=== PATIENT | female | born 1960 | race Two or more races ===

== ENCOUNTER 2017-01-24 05:01 | Inpatient (IN) | payer OTHER ==
[~2017-01-24] VITALS: Ht 154.9 cm; Wt 78.1 kg
[2017-01-24 05:15] VITALS: BP 128/78
[2017-01-24 05:30] VITALS: BP 128/78
--- NOTE | 2017-01-24 05:30 | NUR ---
MS RN NOTE RECEIVED PATIENT AWAKE, ALERT AND ORIENTED VIA [facility] FOR LEFT KNEE SURGERY. ACCOMPANIED BY FRIEND VERO. PATIENT IS IN STABLE CONDITION, WITH NO DISTRESS NOTED. ABLE TO AMBULATE AND MAKE NEEDS KNOWN. ORIENTED PATIENT TO ROOM AND TO UNIT. ALL BELONGINGS CHECKED AND ACCOUNTED FOR. IV STARTED TO LAC. PATIENT TOLERATED WELL. PATIENT STATES THAT SHE HAS BEEN NPO SINCE 1400 ON 01/23. ALL CONSENTS AND PRE-OP CHECKLISTSIGNED AND PLACED IN CHART. SKIN CHECKED. NO BREAKDOWN OR BRUISING NOTED. BED LOCKED AND IN LOWEST POSITION. SIDE RAILS UP, CALL LIGHT WITHIN REACH. WAITING FOR OR TO TRAINING PROGRAM ASSISTANT PATIENT. WILL CONTINUE TO MONITOR.
[2017-01-24] MEDS ORDERED: BACITRACIN 50000 UNITS/VIAL ONE (06:06)
[2017-01-24] MEDS ORDERED: KETOROLAC TROMETHAMINE INJ 30 MG/ML VIAL ONE (06:06)
[2017-01-24] MEDS ORDERED: BUPIVACAINE 0.5 % PF 150 MG/30 ML VIAL ONE (06:06)
[2017-01-24] MEDS ORDERED: ANESTHESIA TRAY IN PYXIS 1 EA TRAY MC ONE (06:06)
--- NOTE | 2017-01-24 06:20 | NUR ---
MS RN NOTE PATIENT PICKED UP BY OR NURSE IN STABLE CONDITION FOR LEFT KNEE SURGERY.
[2017-01-24] MEDS ORDERED: MIDAZOLAM HCL 2 MG/2ML VIAL ONE (06:30)
[2017-01-24] MEDS ORDERED: FENTANYL PF 100MCG/2ML AMPUL ONE (06:31)
[2017-01-24 06:48] LABS: BASOPHILS % (AUTO) 0.3 % (0.0-2.0); EOSINOPHILS # (AUTO) 0.1 /CMM (0.0-0.7); EOSINOPHILS % (AUTO) 1.4 % (0.0-6.0); HEMATOCRIT 44 % (33-45); HEMOGLOBIN 14.8 g/dL (11.5-14.8); LYMPHOCYTES # (AUTO) 2.6 /CMM (0.8-4.8); LYMPHOCYTES % (AUTO) 38.3 % (20.0-44.0); MEAN CORPUSCULAR HEMOGLOBIN 30 PG (26.0-33.0); MEAN CORPUSCULAR HGB CONC 34 g/dl (31.0-36.0); MEAN CORPUSCULAR VOLUME 88 fL (82-100); MONOCYTES # (AUTO) 0.4 /CMM (0.1-1.30); MONOCYTES % (AUTO) 6.1 % (2.0-12.0); NEUTROPHILS # (AUTO) 3.7 /CMM (1.8-8.9); NEUTROPHILS % (AUTO) 53.9 % (43.0-81.0); PLATELET COUNT (AUTO) 176 /CMM (150-450); RED BLOOD CELL COUNT(AUTO) 4.95 MIL/uL (4.0-5.2); WHITE BLOOD COUNT (AUTO) 6.9 K/uL (4.3-11.0)
[2017-01-24 07:06] LABS: CALCIUM, SERUM 9.6 mg/dL (8.5-10.1); POTASSIUM 3.9 mmol/L (3.5-5.1)
[2017-01-24] MEDS ORDERED: TRANEXAMIC ACID 3,000 MG in SODIUM CHLORIDE IRRIG SOLUTION 70 ML IR ONE (07:30)
--- NOTE | 2017-01-24 07:30 | NUR ---
MS RN PATIENT OUT OF ROOM, IN OR FOR SURGERY.
[2017-01-24 09:15] VITALS: BP 115/72
--- NOTE | 2017-01-24 09:15 | NUR ---
ms rn received 56 year old patient awake,alert,oriented x 3, not in any form of distress, respirations even and unlabored,no sob noted, s/p left knee surgery w/ dry dressing intact, no s/s of bleeding noted, ice pack applied, vergara to gravity, w/ yellowish urine output, will monitor patient's condition.
[2017-01-24 09:30] VITALS: BP 122/71
[2017-01-24] MEDS ORDERED: TYLENOL 650 MG TABLET PO PRN (10:30)
[2017-01-24] MEDS ORDERED: ZOFRAN 4mg/2ML IV PRN (10:30)
[2017-01-24] MEDS ORDERED: DULCOLAX 10 MG/SUPP.RECT RC PRN (10:30)
[2017-01-24] MEDS ORDERED: CLONIDINE HCL 0.1 MG TABLET PO PRN (10:30)
[2017-01-24] MEDS ORDERED: PROMETHAZINE HCL 25 MG/ML AMPUL IM PRN (10:30)
[2017-01-24] MEDS ORDERED: HYDROCODONE/APAP 10/325MG 1 EA TABLET PO PRN ×2 (10:30→19:30)
[2017-01-24] MEDS ORDERED: NALOXONE HCL 0.4 MG/ML AMPUL IV PRN (10:30)
[2017-01-24] MEDS ORDERED: SENOKOT 8.6 MG TABLET PO PRN (10:30)
[2017-01-24] MEDS ORDERED: HYDROMORPHONE 1 MG/1 ML DISP.SYRIN SQ PRN ×3 (10:30→19:30)
[2017-01-24] MEDS ORDERED: ONDANSETRON HCL/PF 4 MG/2 ML VIAL IVP PRN (10:30)
[2017-01-24] MEDS ORDERED: BISACODYL SUPP (10 MG) 10 MG/SUPP.RECT SUPP.RECT RC PRN (10:30)
[2017-01-24] MEDS ORDERED: IV D5/0.45 NACL 1,000 ML IV PRN (10:30)
[2017-01-24] MEDS ORDERED: MAG HYDROX/AL HYDROX/SIMETH 30 ML UDC PO PRN (10:30)
[2017-01-24] MEDS ORDERED: diphenhydrAMINE HCL 25 MG CAPSULE PO PRN (10:30)
[2017-01-24] MEDS ORDERED: MAGNESIUM HYDROXIDE 30 ML UDC PO PRN (10:30)
[2017-01-24] MEDS ORDERED: HYDROCODONE/APAP 5/325MG 1 EACH TABLET PO PRN ×2 (10:30→17:00)
[2017-01-24] MEDS ORDERED: oxyCODONE IR immediate release 5 MG CAPSULE PO PRN (10:30)
[2017-01-24] MEDS ORDERED: MENTHOL/CETYLPYRD (CEPACOL) 1 LOZ LOZENGE MM PRN (10:30)
[2017-01-24] MEDS ORDERED: COLACE 250 MG CAPSULE PO PRN (10:30)
--- NOTE | 2017-01-24 11:00 | NUR ---
ms rn started on iv, dilaudid 1 mg iv given for pain,will monitor effectiveness, is started for hydration, v/s monitored.
[2017-01-24] MEDS: ONDANSETRON HCL/PF 4 MG/2 ML VIAL IVP PRN (12:43)
--- NOTE | 2017-01-24 14:30 | NUR ---
ms rn was seen by feliciano joaquin, awaiting for orders.
[2017-01-24 16:00] VITALS: BP 117/76
--- NOTE | 2017-01-24 16:00 | NUR ---
ms rn was seen by pt, cpm on at 30 degree angle.
[2017-01-24] MEDS: ANCEF 1 G in IV D5W 50 ML IV SCH (16:12)
[2017-01-24] MEDS: DOCUSATE SODIUM 100 MG CAPSULE PO SCH (16:14)
--- NOTE | 2017-01-24 17:00 | NUR ---
ms rn was seen by dr. vaughn son/ orders made and carried out.
--- NOTE | 2017-01-24 18:20 | NUR ---
ms nr on bed, no distress, will endorsed to corporate wellness coordinator for continuity of care. cpm removed during dinner.
--- NOTE | 2017-01-24 19:50 | NUR ---
MS RN NOTE: PATIENT RESTING IN BED, NO ACUTE DISTRESS NOTED. BREATHING EVEN AND UNLABORED, NO SOB NOTED. IV TO LFA IN PLACE, INFUSING D5 1/2NS AT 125 ML/HR. PRICE CATHETER IN PLACE, EMPTY AT THIS TIME. DRESSING TO LEFT LEG CLEAN, DRY AND IN PLACE, NO BLEEDING NOTED. BED LOCKED AND IN LOWEST POSITION, CALL LIGHT IN REACH. WILL CONTINUE TO MONITOR.
[2017-01-24 20:00] VITALS: BP 114/77
[2017-01-24] MEDS: HYDROCODONE/APAP 5/325MG 1 EACH TABLET PO PRN (20:08)
--- NOTE | 2017-01-24 20:15 | NUR ---
MS RN NOTE: PATIENT COMPLAINS OF PAIN TO LEFT LEG /10, NORCO 5/325MG ORAL GIVEN PER MD ORDER. WILL CONTINUE TO MONITOR.
[2017-01-24] MEDS: PANTOPRAZOLE 40 MG TABLET.DR PO SCH (21:51)
[2017-01-24] MEDS ORDERED: AMBIEN 5 MG TABLET PO PRN (22:00)
[2017-01-25] MEDS: ANCEF 1 G in IV D5W 50 ML IV SCH (01:08)
[2017-01-25] MEDS: HYDROCODONE/APAP 5/325MG 1 EACH TABLET PO PRN ×5 (03:34→22:21)
--- NOTE | 2017-01-25 03:35 | NUR ---
MS RN NOTE: PATIENT COMPLAINS OF PAIN TO LEFT LEG /10, NORCO 5/325MG ORAL GIVEN PER MD ORDER. WILL CONTINUE TO MONITOR.
--- NOTE | 2017-01-25 04:19 | NUR ---
MS RN NOTE: PATIENT ABLE TO TOLERATE CURRENT DIET WITHOUT COMPLICATION, PER DR. GRUBER ORDER, TO DISCONTINUE IV FLUIDS WITH PATIENT ABLE TO TOLERATE ORAL INTAKE. IV FLUIDS DISCONTINUED. WILL CONTINUE TO MONITOR.
--- NOTE | 2017-01-25 06:20 | NUR ---
MS RN NOTE: PATIENT RESTING IN BED, NO ACUTE DISTRESS NOTED. BREATHING EVEN AND UNLABORED, NO SOB NOTED. IV TO LFA IN PLACE. PRICE CATHETER IN PLACE. DRESSING TO LEFT LEG CLEAN, DRY AND IN PLACE, NO BLEEDING NOTED. BED LOCKED AND IN LOWEST POSITION, CALL LIGHT IN REACH. WILL ENDORSE TO DAY NURSE TO CONTINUE WITH PLAN OF CARE.
--- NOTE | 2017-01-25 07:30 | NUR ---
MS RN AM NOTES: PATIENT IN BED, AAO X 4, S/P L KNEE ARTHROTOMY 01/24/17 DR GRUBER, CDI DRESSING, MD TO CHANGE DRESSING, ON RA, NO ACUTE DISTRESS NOTED. BREATHING EVEN AND UNLABORED, NO SOB NOTED. LFA G20 IV ACCESS FLUSHES WELL, SITE CLEAR, REGULAR DIET, CPM MACHINE IN PLACE, FOR PHYSICAL THERAPY FWB, OOB, BED LOCKED AND IN LOWEST POSITION, CALL LIGHT IN REACH. WILL CONTINUE TO MONITOR.
--- NOTE | 2017-01-25 07:30 | NUR ---
MS SINGLETARY AM NOTES: PATIENT IN BED, AAO X 4, S/P RT SHOULDER ARTHROTOMY 01/24/17 DR GRUBER, CDI DRESSING, ON RA, NO ACUTE DISTRESS NOTED. BREATHING EVEN AND UNLABORED, NO SOB NOTED. D5 1/2NS AT 125 ML/HR TO LFA INFUSING WELL. SITE CLEAR, REGULAR DIET, AMBULATORY, BRP. BED LOCKED AND IN LOWEST POSITION, CALL LIGHT IN REACH. WILL CONTINUE TO MONITOR. Addendum: 01/25/17 at 1113 by ENE REYEZ RN CORRECTION: DISREGARD THIS NOTES INTENDED FOR ANOTHER PATIENT.
[2017-01-25 08:00] VITALS: BP 121/63
[2017-01-25] MEDS: ASPIRIN 325 MG TABLET PO SCH ×2 (08:37→16:57)
[2017-01-25] MEDS: DOCUSATE SODIUM 100 MG CAPSULE PO SCH ×2 (09:20→16:57)
--- NOTE | 2017-01-25 09:30 | NUR ---
MS RN NOTES ADMINISTERED DUE MEDS.
[2017-01-25 11:58] LABS: HEMOGLOBIN 13.4 g/dL (11.5-14.8)
[2017-01-25 16:00] VITALS: BP_SYST 119; BP_DIAS 63; BP_DIAS 65
[2017-01-25 18:00] VITALS: BP 119/63
--- NOTE | 2017-01-25 18:27 | NUR ---
MS RN CLOSING NOTES: PATIENT IN BED, RESTING COMFORTABLY, AAO X 4, S/P L KNEE ARTHROTOMY 01/24/17 DR GRUBER, CDI DRESSING, MD TO CHANGE DRESSING SRINIVAS, ON RA, NO ACUTE DISTRESS NOTED. BREATHING EVEN AND UNLABORED, NO SOB NOTED. DENIES PAIN AT THIS TIME, LFA G20 IV ACCESS FLUSHES WELL, SITE CLEAR, REGULAR DIET, CPM MACHINE IN PLACE,PRICE CATHETER IN PLACE WITH 1200 ML OUTPUT, REQUESTED TO KEEP ON FOR TONIGHT SCARED TO GET UP DUE TO DIZZY SPELL EARLIER WHILE SITTING IN CHAIR, BED LOCKED AND IN LOWEST POSITION, CALL LIGHT IN REACH. ALL NEEDS MET, NO OTHER SIGNIFICANT CHANGE IN CONDITION. WILL ENDORSE TO NEXT SHIFT FOR SHIRA.
--- NOTE | 2017-01-25 19:40 | NUR ---
MS RN NOTE: PATIENT RESTING IN BED, NO ACUTE DISTRESS NOTED. BREATHING EVEN AND UNLABORED, NO SOB NOTED. IV TO LFA IN PLACE. PRICE CATHETER IN PLACE, EMPTY AT THIS TIME. DRESSING TO LEFT LEG CLEAN, DRY AND IN PLACE, NO BLEEDING NOTED. BED LOCKED AND IN LOWEST POSITION, CALL LIGHT IN REACH. WILL CONTINUE TO MONITOR.
[2017-01-25 20:00] VITALS: BP 111/60
[2017-01-25] MEDS: PANTOPRAZOLE 40 MG TABLET.DR PO SCH (22:17)
--- NOTE | 2017-01-25 22:30 | NUR ---
MS RN NOTE: PATIENT COMPLAINS OF PAIN TO LEFT LEG /10, NORCO 5/325MG ORAL GIVEN PER MD ORDER. WILL CONTINUE TO MONITOR.
[2017-01-26] MEDS: HYDROCODONE/APAP 5/325MG 1 EACH TABLET PO PRN ×3 (02:57→20:16)
--- NOTE | 2017-01-26 03:00 | NUR ---
MS RN NOTE: PATIENT COMPLAINS OF PAIN TO LEFT LEG /10, NORCO 5/325MG ORAL GIVEN PER MD ORDER. WILL CONTINUE TO MONITOR.
--- NOTE | 2017-01-26 06:10 | NUR ---
MS RN NOTE: PATIENT RESTING IN BED, NO ACUTE DISTRESS NOTED. BREATHING EVEN AND UNLABORED, NO SOB NOTED. IV TO LFA IN PLACE. PRICE CATHETER IN PLACE. DRESSING TO LEFT LEG CLEAN, DRY AND IN PLACE, NO BLEEDING NOTED. BED LOCKED AND IN LOWEST POSITION, CALL LIGHT IN REACH. WILL CONTINUE TO MONITOR.
--- NOTE | 2017-01-26 07:30 | NUR ---
MS RN OPENING NOTES RECEIVED PT IN BED A/O X4,VERBALLY RESPONSIVE,ON ROOM AIR RESPIRATIONS EVEN UNLABORED,NO SOB NOTED.CALL LIGHT WITHIN REACH. F/C IN PLACE PATENT DRAINIG YELLOW COLOR URINE.IV SITE LFA INTACT, NO S/SX OF INFILTRATION NOTED. ON REGULAR DIET. BED LOCKED AND IN LOWEST POSITION.SAFETY MEASURES IN PLACE. WILL CONTINUE TO MONITOR ACCORDINGLY.
[2017-01-26 08:00] VITALS: BP 123/72
[2017-01-26] MEDS: DOCUSATE SODIUM 100 MG CAPSULE PO SCH ×2 (08:28→16:34)
[2017-01-26] MEDS: ASPIRIN 325 MG TABLET PO SCH ×2 (08:28→16:34)
--- NOTE | 2017-01-26 09:30 | NUR ---
MS RN NOTES DUE MEDS GIVEN. PRICE CATHETER DISCONTINUED EARLIER WITH 250 ML OUTPUT.
[2017-01-26] MEDS: ONDANSETRON HCL/PF 4 MG/2 ML VIAL IVP PRN (15:24)
[2017-01-26 16:00] VITALS: BP 133/85
[2017-01-26] MEDS ORDERED: HYDROCODONE/APAP 5/325MG 1 EACH TABLET PO PRN (17:00)
--- NOTE | 2017-01-26 18:49 | NUR ---
MS RN CLOSING NOTES: PATIENT IN BED, RESTING COMFORTABLY, AAO X 4, S/P L KNEE ARTHROTOMY 01/24/17 DR GRUBER, CDI DRESSING, MD TO CHANGE DRESSING SRINIVAS, ON RA, NO ACUTE DISTRESS NOTED. BREATHING EVEN AND UNLABORED, NO SOB NOTED. DENIES PAIN AT THIS TIME, LFA G20 IV ACCESS FLUSHES WELL, SITE CLEAR, REGULAR DIET, CPM MACHINE IN PLACE,BED LOCKED AND IN LOWEST POSITION, CALL LIGHT IN REACH. ALL NEEDS MET, NO OTHER SIGNIFICANT CHANGE IN CONDITION. WILL ENDORSE TO NEXT SHIFT FOR SHIRA.
--- NOTE | 2017-01-26 19:15 | NUR ---
RN NOTES PT RESTING IN BED, NO APPARENT S/S OF PAIN OR DISTRESS. PT S/P L KNEE ARTHROTOMY 01/24/17 DR GRUBER. NO COMPLAINTS OF SOB. BREATHING EVEN AND UNLABORED. PT IV LEFT FA PATENT AND INTACT. BED LOW, LOCKED AND 2XSIDE RAILS UP. PT ABLE TO AMBULATE TO THE BEDSIDE COMMODE W/ ASSISTANCE. AWAITING BM. SAFETY PRECAUTIONS IN PLACE. CALL LIGHT WITHIN REACH. WILL CONTINUE TO MONITOR.
[2017-01-26 20:00] VITALS: BP 124/75
--- NOTE | 2017-01-26 20:16 | NUR ---
PT REQUESTING PAIN MEDICATION FOR A PAIN LEVEL 4/10. WILL ADMINISTER AND CONTINUE TO MONITOR.
[2017-01-26] MEDS: PANTOPRAZOLE 40 MG TABLET.DR PO SCH (22:39)
--- NOTE | 2017-01-27 03:05 | NUR ---
PT REQUESTING PAIN MEDICATION FOR A LEVEL OF 9/10. WILL ADMINISTER MEDICATION AND CONTINUE TO MONITOR. WILL FOLLOW UP.
[2017-01-27] MEDS: HYDROCODONE/APAP 5/325MG 1 EACH TABLET PO PRN ×2 (03:06→10:25)
--- NOTE | 2017-01-27 06:41 | NUR ---
RN CLOSING NOTES PT SLEEPING IN BED, NO APPARENT S/S OF PAIN OR DISTRESS. PT S/P L KNEE ARTHROTOMY 01/24/17 DR GRUBER. NO SIGNIFICANT CHANGES OVERNIGHT. NO COMPLAINTS OF SOB. BREATHING EVEN AND UNLABORED. NO COMPLAINTS OF DIZZINESS AFTER AMBULATING TO BEDSIDE COMMODE. PT ABLE TO AMBULATE TO THE BEDSIDE COMMODE W/ ASSISTANCE. AWAITING BM. PT IV LEFT FA PATENT AND INTACT. BED LOW, LOCKED AND 2XSIDE RAILS UP. SAFETY PRECAUTIONS IN PLACE. CALL LIGHT WITHIN REACH. WILL ENDORSE TO THE DAY SHIFT NURSE FOR CONTINUITY OF CARE.
[2017-01-27 08:00] VITALS: BP 106/61
[2017-01-27] MEDS: ASPIRIN 325 MG TABLET PO SCH (08:47)
[2017-01-27] MEDS: DOCUSATE SODIUM 100 MG CAPSULE PO SCH (08:47)
[2017-01-27] MEDS ORDERED: ASPI325T2 PO (10:52)
--- NOTE | 2017-01-27 16:33 | NUR ---
MST/RN - Discharge Notes Patient is A/O x 4, denies pain, no apparent distress seen, cleared by ortho for discharge. Patient in stable condition discharged home with home health today. Reviewed discharge instructions with patient and she verbalized full understanding of all teachings including medication management and follow-up care with [facility] on 02/03/17 at 12:[address] Yi in 2 weeks. All belongings with the patient and she denies any missing items. Patient refused discharge photo to be taken on her sacral area, no skin breakdown seen. Left knee dressing is C/D/I. Patient was offered flu and pna vaccine but refused. Discharge papers given and copy was placed in the chart. Accompanied to the lobby via wheelchair and transported by private car.
== END 2017-01-27 16:44 | disposition home health service (06) | DRG 470 ==
LOC: DS 05:01 → MED 05:12
PROVIDERS: ADMIT Specialist; ATTEND Internal Medicine
PROC: 0SRD0J9 Replacement of Left Knee Joint with Synthetic Substitute, Cemented, Open Approach (ICD-10-PCS; principal; 2017-01-24 06:30)
PROC: 0QQF0ZZ Repair Left Patella, Open Approach (ICD-10-PCS; principal; 2017-01-24 06:30)
PROC: 0SBD0ZZ Excision of Left Knee Joint, Open Approach (ICD-10-PCS; principal; 2017-01-24 06:30)
DX: M22.42 Chondromalacia patellae, left knee (principal); E66.9 Obesity, unspecified; M17.12 Unilateral primary osteoarthritis, left knee; Z68.32 Body mass index [BMI] 32.0-32.9, adult; S83.282A Other tear of lateral meniscus, current injury, left knee, initial encounter; X58.XXXA Exposure to other specified factors, initial encounter; Y93.9 Activity, unspecified; Y92.009 Unspecified place in unspecified non-institutional (private) residence as the place of occurrence of the external cause
CPT/HCPCS: 36415; 80048-TC; 85025-TC; 85027-TC; 86850-TC; 87081-TC; 88305-TC; 88311-TC; 97110-TC; 97116-TC; 97530-TC; 97760-TC; A4217; A6402; C1713; J0690; J1100; J1170; J1885; J2250; J2405; J2550; J2704; J3010; J3490; J7060; Z7610

== ENCOUNTER 2017-02-03 11:45 | Outpatient (CLI) | payer OTHER ==
[~2017-02-03 11:45] MED LIST: ASPI-992 PO
[2017-02-03 11:59] VITALS: BP 128/88
== END 2017-02-03 23:59 | disposition home or self-care (01) ==
LOC: MSC 11:45
PROVIDERS: ATTEND Internal Medicine
DX: Z47.33 Aftercare following explantation of knee joint prosthesis (principal); M17.12 Unilateral primary osteoarthritis, left knee; E66.9 Obesity, unspecified; I82.409 Acute embolism and thrombosis of unspecified deep veins of unspecified lower extremity